=== PATIENT | male | born 2005 | race Caucasian/White ===

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

== ENCOUNTER 2025-02-13 23:10 | Emergency (ER) | payer OTHER, SELFPAY ==
[2025-02-13 23:14] VITALS: BP 134/66; PULSE 64; TEMP 36.9; O2SAT 97; BMI 35.4
--- OUTSIDE RECORDS SUMMARY | 2025-02-13 23:15 | XMS_ITS | Clinical Summary ---
Author Organization [facility] Address [address], [address] [place] [address] Care Team Providers Care Industrial Arts Teacher Name Role Phone Chandrika Hebert HOME AID - PRESIDENT Primary Care Provider + Allergies Active Allergy Reactions Criticality Noted Date Comments Codeine 10/05/2011 Penicillins 10/04/2021 Medications Lisdexamfetamine Dimesylate (VYVANSE) 40 MG CAPSIndications:At tention deficit hyperactivity disorder (ADHD), combined type Take 1 capsule by mouth Daily for 90 days. 90 capsule 2 Active amphetamine-dextro amphetamine (ADDERALL, 10MG,) 10 MG tabletIndications: Attention deficit hyperactivity disorder (ADHD), combined type Take 1 tablet by mouth 2 times daily as needed (attention focus) for up to 30 days. Max Daily Amount: 20 mg 60 tablet 4 Active Active Problems Patient Care Coordination No te Formatting of this note migh t be different from the original. Patient is transferring to [facility]. Problem Noted Date Diagnosed Date Seasonal allergies 10/05/2015 ADHD (attention deficit hyperactivity disorder) 07/28/2014 Immunizations Immunization Administration Dates Next Due COVID-19, Inactive, PFIZER P URPLE top, DILUTE for use, (age 12 y+) 01/14/2021 DTaP 10/20/2011, 7,06/11/2006,04/12,02/15/2006 HPV, GARDASIL 9, (age 9y-45y ), IM, 0.5mL 03/20/2019 Hepatitis B 06/11/2006,02/15/2006,2005 Hib, unspecified 03/26/2007,04/12/2006, 6 MMR, PRIORIX, M-M-R II, (age 12m+), SC, 0.5mL 10/20/2011,12/10/2006 Meningococcal ACWY, MENACTRA (MenACWY-D), (age 9m-55y), IM, 0.5mL 03/20/2019 Meningococcal ACWY, MENVEO (MenACWY-CRM), (age 2m-55y), IM, 0.5mL 12/03/2023 Pneumococcal Conjugate 7-christiano ent (Prevnar7) 03/26/2007,06/11/2006,04/12/2006,02/15 Poliovirus, IPOL, (age 6w+), SC/IM, 0.5mL 10/20/2011,06/11/2006,04/12/2006,02/15 TDaP, ADACEL (age 10y-64y), BOOSTRIX (age 10y+), IM, 0.5mL 03/27/2019 Varicella, VARIVAX, (age 12m +), SC, 0.5mL 10/20/2011,12/10/2006 Family History Medical History Relation Name Comments Cancer Paternal Aunt lymphoma Cancer Paternal Grandfather colon Relation Name Status Comments Father Alive Maternal Grandfather Alive Maternal Grandmother Alive Mother Alive Paternal Aunt Alive Paternal Grandfather Paternal Grandmother Alive Social History Tobacco Use Types Packs/Day Years Used Date Smoking Tobacco: Never Passive Smoke Exposure: Yes Smokeless Tobacco: Never Tobacco Cessation:Counseling Given: Not Answered Alcohol Use Standard Drinks/Week Comments No 0 (1 standard drink = 0.6 oz pur e alcohol) Overall Financial Resource Strain (CARDIA) Answe r Date Recorded How hard is it for you to pa y for the very basics like food, housing, medical care, and heating? Not hard at all 06/16/2021 PHQ-2 Answer Date Recorded PHQ-9 Total Score 0 12/03/2023 Hunger Vital Sign Answer Date Recorded Within the past 12 months, y ou worried that your food would run out before you got the money to buy more. Never true 06/16/19 22 Within the past 12 months, t he food you bought just didn't last and you didn't have money to get more. Never true 06/16/2021 Sex and Gender Information Value Date Recorded Sex Assigned at Not on file Legal Sex Male 10:24 PM EST Gender Identity Not on file Sexual Orientation Not on file Last Filed Vital Signs Vital Sign Reading Time Taken Comments Blood Pressure 116/64 12/03/2023 11:35 AM EDT Pulse 73 12/03/2023 11:35 AM EDT Temperature 36.7 C (98 F) 06/16/2021 4:16 PM EST Respiratory Rate 18 12/03/2023 11:35 AM EDT Oxygen Saturation 98% 12/03/2023 11:35 AM EDT Inhaled Oxygen Concentration - - Weight 119.7 kg (264 lb) 12/03/2023 11:35 AM EDT Height 171.7 cm (5' 7.6 ) 12/03/2023 11:35 AM ED T Body Mass Index 40.62 12/03/2023 11:35 AM EDT Body Mass Index Percentile 99.58% 12/03/2023 11: 35 AM EDT Growth Chart: CDC (Boys, 2-2 0 Years) Plan of Treatment Health Maintenance Due Date Last Done Comments HPV vaccine (2 - Male 2-dose series) 09/18/2019 03/20/2019 HIV screen 2020 Meningococcal B vaccine (1 of 2 - Standard) 2021 Hepatitis C screen 12/10/2023 Depression Screen 12/02/2024 12/03/2023 Flu vaccine (#1) 12/05/2024 COVID-19 Vaccine (3 - season) 2025 02/04/2021, 01/14/2021 DTaP/Tdap/Td vaccine (7 - Td or Tdap) 03/27/2029 03/27/2019, 10/20/2011, 03/26/2007, Additional history exists Hepatitis B vaccine Completed 06/11/2006, 02/15/2006, 2005 Hib vaccine Completed 03/26/2007, 11/2005, 02/15/2006 Pneumococcal 0-49 years Vaccine Aged Out 03/26/2007, 06/11/2006, 04/12/2006, Additional history exists No longer eligible based on patient's age to complete this topic Measles,Mumps,Rubella (MMR) vaccine Discontinued 10/20/2011, 12/10/2006 Polio vaccine Completed 10/20/2011, 09/2006, 04/12/2006, Additional history exists Varicella vaccine Completed 10/20/2011, 12/10/2006 Meningococcal (ACWY) vaccine Completed 12/03/2023, 03/20/2019 Hepatitis A vaccine Aged Out No longe r eligible based on patient's age to complete this topic Care Teams Industrial Arts Teacher Relationship Specialty Start Date End Date Chandrika Hebert, HOME AID - PRESIDENT PCP - General Nurse Practitioner 10/05/15
--- OUTSIDE RECORDS SUMMARY | 2025-02-13 23:15 | XMS_ITS | CCD ---
Author Organization [facility] Care Team Providers Care Advanced Developer Name Role Phone MISC, DOCTOR Unavailable Unavailable MISC, DOCTOR Unavailable Unavailable MISC, DOCTOR Unavailable Unavailable TITO MACIAS Referring Unavailable CHANDRIKA MONTOYA Primary Care Unavailable Chandrika Sheehan Primary Care Provider Allergies Allergy Classification Reported Allergen(s) Allergy Type Date of Onset Reaction(s) Facility (2 sources) Penicillins Propensity to adverse reactions to drug 10-04-2021 [facility] Medications Current Medications Medication Drug Class(es) Dates Sig (Normalized) Sig (Original) amphetamine aspartate 2.5 mg / amphetamine sulfate 2.5 mg / dextroamphetamine saccharate 2.5 mg / dextroamphetamine sulfate 2.5 mg oral tablet (2 sources) Central Nervous System Stimulant Start: 12-03-2023 take 1 tablet by mouth in the morning dextroamphetamine-am phetamine (ADDERALL) 10 mg tablet Take 1 tablet (10 mg total) by mouth in the morning. 12/03/2023 Active doxycycline monohydrate 100 mg oral capsule (1 source) Tetracycline-cl ass Drug Start: 02-26-2024 End: 03-07-2024 take 1 capsule by mouth in the morning, then take 1 capsule by mouth at bedtime doxycycline (MONODOX) 100 mg capsule Indications: Onychocryptosis , Left foot pain Take 1 capsule (100 mg total) by mouth in the morning and 1 capsule (100 mg total) before bedtime. Do all this for 10 days. 20 capsule 02/26/2024 03/07/2024 Active Problems Active Problems Problem Classification Problem Date Documented Da te Episodic/Chronic Other aftercare (6 sources) Other middle or intermediate school principal (current) drug therapy; Translations: [OTH DETENTION CURRENT DRUG THERAPY] Onset: 01-14-2017 Episodic Past or Other Problems Problem Classification Problem Date Documented Da te Episodic/Chronic Other connective tissue disease (1 source) Pain in left foot; Translations: [Pain in left foot] 02-26-2024 Episodic Other skin disorders (2 sources) Ingrowing nail; Translations: [Ingrowing nail] 02-26-2024 Episodic Results Test Name Value Interpretation Reference Range Dwayne meyer CBCon 07-17-2018 Erythrocyte distribution width Ratio (RBC) 12.7 % Normal 11.8-14.4 [facility] Comment on above: Performed By: #### C ELYSE, CP #### [address] [address] [employer] Practitioner: Brando Mendoza MD Hematocrit Volume Fraction (Bld) 44.4 % Normal 37.0-49.0 [facility] Comment on above: Performed By: #### C ELYSE, CP #### [address] [address] [employer] Practitioner: Brando Mendoza MD Hemoglobin mass conc (Bld) 14.4 g/dL Normal 13.0-15.0 [facility] Comment on above: Performed By: #### C ELYSE, CP #### [address] [address] [employer] Practitioner: Brando Mendoza MD MCH Entitic mass (RBC) 28.2 pg Normal 25.0-35.0 [facility] Comment on above: Performed By: #### C BC, CP #### [address] [address] [employer] Practitioner: Brando Mendoza MD MCHC mass conc (RBC) 32.4 g/dL Normal 28.4-34.8 [facility] Comment on above: Performed By: #### C BC, CP #### [address] [address] [employer] Practitioner: Brando Mendoza MD MCV Entitic volume (RBC) 86.9 fL Normal 78.0-102.0 [facility] Comment on above: Performed By: #### C BC, CP #### [address] [address] [employer] Practitioner: Brando Mendoza MD NRBC Automated 0.0 per 100 WBC Normal 0.0 [facility] Comment on above: Performed By: #### C BC, CP #### [address] [address] [employer] Practitioner: Brando Mendoza MD Platelet mean volume Entitic volume (Bld) 9.2 fL Normal 8.1-13.5 [facility] Comment on above: Performed By: #### C BC, CP #### [address] [address] [employer] Practitioner: Brando Mendoza MD Platelets #/vol (Bld) 379 10*3/uL Normal 138-453 [facility] Comment on above: Performed By: #### C BC, CP #### [address] [address] [employer] Practitioner: Brando Mendoza MD RBC #/vol (Bld) 5.11 10*6/uL Normal 4.50-5.30 [facility] Comment on above: Performed By: #### C BC, CP #### [address] [address] [employer] Practitioner: Brando Mendoza MD WBC #/vol (Bld) 4.4 10*3/uL Low 4.5-13.5 [facility] Comment on above: Performed By: #### C BC, CP #### [address] [address] [employer] Practitioner: Brando Mendoza MD Comp Metabolic Profon 2018 (cont.) Normal [facility] Comment on above: Result Comment: Aver age GFR for <20 years old not available. Chronic Kidney Disease: <60 mL/min/1.73sq m Kidney failure: <15 mL/min/1.73sq m eGFR calculated using average adult body mass. Additional eGFR calculator available at: http://www.[employer].TabUp/multiple_crcl_2012.htm Performed By: #### C ELYSE, CP #### [address] [address] [employer] Practitioner: Brando Mendoza MD Albumin mass conc 4.7 g/dL Normal 3.8-5.4 [facility] Comment on above: Performed By: #### C ELYSE, CP #### [address] [address] [employer] Practitioner: Brando Mendoza MD Albumin/Globulin mass ratio 1.7 {ratio} Normal 1.0-2.5 [facility] Comment on above: Performed By: #### C ELYSE, CP #### [address] [address] [employer] Practitioner: Brando Mendoza MD Alkaline Phos 241 U/L Normal 42-362 [facility] Comment on above: Performed By: #### C BC, CP #### [address] [address] [employer] Practitioner: Brando Mendoza MD ALT enzyme act/vol 17 U/L Normal 5-41 [facility] Comment on above: Performed By: #### C BC, CP #### [address] [address] [employer] Practitioner: Brando Mendoza MD Anion gap molar conc 15 mmol/L Normal 9-17 [facility] Comment on above: Performed By: #### C BC, CP #### [address] [address] [employer] Practitioner: Brando Mendoza MD AST enzyme act/vol 19 U/L Normal <40 [facility] Comment on above: Performed By: #### C BC, CP #### [address] [address] [employer] Practitioner: Brando Mendoza MD Bilirubin Ql (U) 0.27 mg/dL Low 0.3-1.2 [facility] Comment on above: Performed By: #### C BC, CP #### [address] [address] [employer] Practitioner: Brando Mendoza MD Calcium mass conc 9.7 mg/dL Normal 8.4-10.2 [facility] Comment on above: Performed By: #### C BC, CP #### [address] [address] [employer] Practitioner: Brando Mendoza MD Chloride molar conc 105 mmol/L Normal 98-107 [facility] Comment on above: Performed By: #### C BC, CP #### [address] [address] [employer] Practitioner: Brando Mendoza MD CO2 molar conc 21 mmol/L Normal 20-31 [facility] Comment on above: Performed By: #### C BC, CP #### [address] [address] [employer] Practitioner: Brando Mendoza MD Creatinine mass conc 0.42 mg/dL Low 0.53-0.79 [facility] Comment on above: Performed By: #### C BC, CP #### [address] [address] [employer] Practitioner: Brando Mendoza MD GFR,non Amer Pediatric GFR requires additional information. Refer to NKDEP website for Normal >60 [facility] Comment on above: Result Comment: calc ulator. Performed By: #### C BC, CP #### [address] [address] [employer] Practitioner: Brando Mendoza MD Glucose mass conc 102 mg/dL High 60-100 [facility] Comment on above: Performed By: #### C BC, CP #### [address] [address] [employer] Practitioner: Brando Mendoza MD Potassium molar conc 4.7 mmol/L Normal 3.6-4.9 [facility] Comment on above: Performed By: #### C BC, CP #### [address] [address] [employer] Practitioner: Brando Mendoza MD Protein mass conc 7.5 g/dL Normal 6.0-8.0 [facility] Comment on above: Performed By: #### C BC, CP #### [address] [address] [employer] Practitioner: Brando Mendoza MD Sodium molar conc 141 mmol/L Normal 135-144 [facility] Comment on above: Performed By: #### C BC, CP #### [address] [address] [employer] Practitioner: Brando Mendoza MD Urea nitrogen mass conc 13 mg/dL Normal 5-18 [facility] Comment on above: Performed By: #### C BC, CP #### [address] [address] [employer] Practitioner: Brando Mendoza MD BUN/CRE Ratio NOT REPORTED Normal 9-20 [facility] Comment on above: Performed By: #### C BC, CP #### [address] [address] [employer] Practitioner: Brando Mendoza MD GFR, Amer NOT REPORTED Normal >60 [facility] Comment on above: Performed By: #### C BC, CP #### [address] [address] [employer] Practitioner: Brando Mendoza MD Staging: NOT REPORTED Normal [facility] Comment on above: Performed By: #### C BC, #### [place] [place] [address] [employer] Practitioner: Brando Mendoza MD CBC AUTO DIFFon 01-14-2017 Basophils Auto #/vol (Bld) 0.0 103/ul Normal 0.0-0.1 [facility] Comment on above: Performed By: #### C BC ####[facility] [address] [place] [id number] Trish Basophils/100 WBC Auto (Bld) 0.5 % Normal 0.0-0.7 [facility] Comment on above: Performed By: #### C BC ####[facility] [address] [place] [id number] Trish Eosinophils 0.1 103/ul Normal 0.0-0.4 [facility] Comment on above: Performed By: #### C BC ####[facility] Al[address] [place] [id number] Trish Eosinophils/100 leukocytes 2.7 % Normal 0.0-4.0 [facility] Comment on above: Performed By: #### C BC ####[facility] Yrdclykqyl4536 [place] [id number] Trish Erythrocyte distribution width Auto Ratio (RBC) 12.4 % Normal 11.0-15.0 [facility] Comment on above: Performed By: #### C BC ####[facility] [address]ef[address] [place] [id number] Trish Erythrocytes (RBC) 4.78 106/ul Normal 3.93-5.29 [facility] Comment on above: Performed By: #### C BC ####[facility] Xs[address]24[address] [place], [place] [address]Vcncdd Trish Hematocrit (HCT) 39.7 % Normal 33.4-46.0 [facility] Comment on above: Performed By: #### C BC ####[facility] [address] Trish Hemoglobin mass conc (Bld) 13.6 g/dL Normal 10.8-15.5 [facility] Comment on above: Performed By: #### C BC ####[facility] [address] [place] [address] Trish IG # 0.00 10e3/ul Normal 0.00-0.03 [facility] Comment on above: Performed By: #### C BC ####[facility] [address] [place] [address] Trish IG % 0.0 % Normal 0.0-0.5 [facility] Comment on above: Performed By: #### C BC ####[facility] [address] [place] [address] Trish Lymphocytes 1.8 103/ul Normal 1.0-3.3 [facility] Comment on above: Performed By: #### C BC ####[facility] [address] [place] [address] Trish Lymphocytes/100 leukocytes 44.5 % Normal 16.4-52.7 [facility] Comment on above: Performed By: #### C BC ####[facility] K[address] [place] [address] Trish MANUAL DIFF REQ NO Normal [facility] Comment on above: Performed By: #### C BC ####[facility] [address] [place] [address] Trish MCH 28.5 pg Normal 24.8-30.2 [facility] Comment on above: Performed By: #### C BC ####[facility] [address] [place] [address] Trish MCHC mass conc (RBC) 34.3 g/dL Normal 30.5-36.0 [facility] Comment on above: Performed By: #### C BC ####[facility] [address] [place] [address] Trish MCV 83.1 fL Normal 76.7-90.6 [facility] Comment on above: Performed By: #### C BC ####[facility] Tjbaohjmng2934 [place], [place] [address]Bnpfoh Trish Monocytes 0.5 103/ul Normal 0.2-0.8 [facility] Comment on above: Performed By: #### C BC ####[facility] [address] [place] [address]Btdgvz Trish Monocytes/100 leukocytes 12.0 % Normal 4.1-12.3 [facility] Comment on above: Performed By: #### C BC ####[facility] [address] [place], [place] [address]Gerken Trish Neutrophils 1.7 103/ul Normal 1.5-7.5 [facility] Comment on above: Performed By: #### C BC ####[facility] F[address] [place], [place] [address]Gerken Trish Neutrophils/100 WBC Auto (Bld) 40.3 % Normal 32.5-74.7 [facility] Comment on above: Performed By: #### C BC ####[facility] [address]we[address] [place], [place] [address]Gerken Trish Platelet mean volume (PMV) 8.8 fL Critically low 9.5-13.5 [facility] Comment on above: Performed By: #### C BC ####[facility] Ry[address] [place], [place] [address]Gerken Trish Platelets 303 103/ul Normal 150-450 [facility] Comment on above: Performed By: #### C BC ####[facility] [address] [place], [place] [address]Gerken Trish WBC (Leukocytes) 4.1 103/ul Normal 3.8-9.8 [facility] Comment on above: Performed By: #### C BC ####[facility] [address] [place], [place] [address]Gerken Trish FREE T3on 01-14-2017 Triiodothyronine (T3) free 5.73 pg/mL Normal 2.73-5.86 [facility] Comment on above: Performed By: #### C MP, TSH, FT3 ####[facility] Z[address]9787 [place] [id number] Trish FREE T4on 01-14-2017 Thyroxine (T4) free 1.11 ng/dL Normal 0.78-2.19 [facility] Comment on above: Performed By: #### V ITAD, FT4 ####[facility] Otxegrcrxb3173 [address] Trish PROF 14(COMP METB)on 017 Alanine aminotransferase (ALT) 36 U/L Normal 21-72 [facility] Comment on above: Performed By: #### C MP, TSH, FT3 ####[facility] Jmnzklcifr9113 [address] Trish Albumin 4.5 g/dL Normal 3.5-5.0 [facility] Comment on above: Performed By: #### C MP, TSH, FT3 ####[facility] Jsvddprnmg3[address] Albumin/Globulin Ratio 1.5 {ratio} Normal T [facility] Comment on above: Performed By: #### C MP, TSH, FT3 ####[facility] Chzmvqxoyj9908 [address] Alkaline phosphatase (ALP) 203 U/L Normal 200-495 [facility] Comment on above: Performed By: #### C MP, TSH, FT3 ####[facility] Oqyxnsuroc0425 [address] Anion gap 13.3 mmol/L Normal [facility] Comment on above: Performed By: #### C MP, TSH, FT3 ####[facility] Ragvuxalxi4256 [address] Aspartate aminotransferase (AST) 26 U/L Normal 17-59 [facility] Comment on above: Performed By: #### C MP, TSH, FT3 ####[facility] Bxyllfklav6054 [address] Bilirubin Ql (U) 0.5 mg/dL Normal 0.2-1.3 [facility] Comment on above: Performed By: #### C MP, TSH, FT3 ####[facility] Yszkzqmkgf2132 [address] Trish BUN/Creatinine Ratio 25.6 mg/mg Normal [facility] Comment on above: Performed By: #### C MP, TSH, FT3 ####[facility] Enwnnapiyr7381 [address] Trish Calcium 9.8 mg/dL Normal 8.4-10.2 [facility] Comment on above: Performed By: #### C MP, TSH, FT3 ####[facility] Sqwkxjssag9769 [address] Trish Chloride 106 mmol/L Normal 98-107 [facility] Comment on above: Performed By: #### C MP, TSH, FT3 ####[facility] Nqrhohphnp5208 [address] Trish CO2 26.0 mmol/L Normal 22.0-30.0 [facility] Comment on above: Performed By: #### C MP, TSH, FT3 ####[facility] Jpfrdeazof9171 [address] Trish Creatinine 0.50 mg/dL Normal 0.40-1.00 [facility] Comment on above: Performed By: #### C MP, TSH, FT3 ####[facility] Tgudgzxlyp3654 [address] Trish Globulin 2.9 g/dL Normal [facility] Comment on above: Performed By: #### C MP, TSH, FT3 ####[facility] Xicbbfjaic0461 [address] Trish Glucose mass conc 93 mg/dL Normal 74-106 [facility] Comment on above: Performed By: #### C MP, TSH, FT3 ####[facility] Lykcteafxj1429 [address] Trish Potassium molar conc 4.5 mmol/L Normal 3.4-5.0 [facility] Comment on above: Performed By: #### C MP, TSH, FT3 ####[facility] Lftuhsrqlx7615 [address] Trish Protein 7.4 g/dL Normal 6.1-8.2 [facility] Comment on above: Performed By: #### C MP, TSH, FT3 ####[facility] Fvaeqgpgyd9902 [address] Trish Sodium 141 mmol/L Normal 137-145 [facility] Comment on above: Performed By: #### C MP, TSH, FT3 ####[facility] Konqovjjkp1427 [address] Trish Urea nitrogen 13.0 mg/dL Normal 6.4-19.3 [facility] Comment on above: Performed By: #### C MP, TSH, FT3 ####[facility] Xwrsyqxunc5247 [address] Trish TSHon 01-14-2017 Thyroid stimulating hormone (TSH) SEE BELOW Normal [facility] Comment on above: Result Comment: <0.3 4 UIU/ml HYPERTHYROID 0.34-5.60 UIU/ml EUTHYROID >5.60 UIU/ml HYPOTHYROID Performed By: #### C MP, TSH, FT3 ####[facility] [address] [place], [place] [address] Thyroid stimulating hormone (TSH) 1.740 uIU/mL Normal 0.580-5.600 [facility] Comment on above: Performed By: #### C MP, TSH, FT3 ####[facility] [address] [place] [address] Trish VITAMIN D 25 OHon 01-14-2017 VIT D 25-OH 49.5 ng/mL Normal [facility] Comment on above: Performed By: #### V ITAD, FT4 ####[facility] [address] [place] [address] Trish VIT D RANGES SEE BELOW Normal [facility] Comment on above: Result Comment: <20 ng/mL Vit D deficient 20 - <30 ng/mL Vit D insufficient 30 - 100 ng/mL Vit D sufficient >100 ng/mL Potential Toxicity Performed By: #### V ITAD, FT4 ####[facility] [address]vbwp[address]3670 [place], [place] [address]PkaqoiReinier Chambers VITDH PLEASE NOTE: NORMAL RANGE CHANGE 01-09-2013, TESTING PERFORMED AT [facility]. Normal [facility] Comment on above: Performed By: #### V WILLYAD, FT4 ####[facility] Jhrvmzitjg0898 [place], [place] [address]ChqcriReinier Chambers Vital Signs Date Time Vital Sign Value Performing Clinician Facility 03-10-2024 09:29-0500 Body height 172.7 cm Evelin Stroder [employer] Work Phone: [facility] 03-10-2024 09:29-0500 Body mass index (BMI) [Percentile] Per age and sex 99.47 % Evelin Stroder [employer] Work Phone: [facility] 03-10-2024 09:29-0500 Body mass index (BMI) [Ratio] 40.14 kg/m2 Evelin Stroder [employer] [facility] 03-10-2024 09:29-0500 Body temperature 96.8 [degF] Evelin Stroder [employer] Work Phone: [facility] 03-10-2024 09:29-0500 Body weight 119.75 kg Evelin Stroder [employer] Work Phone: [facility] 03-10-2024 09:29-0500 Diastolic blood pressure 82 mm[Hg] Evelin Stroder [employer] Work Phone: [facility] [employer] Comment on above: rushing to office 03-10-2024 09:29-0500 Systolic blood pressure 140 mm[Hg] Evelin Stroder [employer] Work Phone: [facility] Comment on above: rushing to office 02-26-2024 14:01-0400 Body height 172.7 cm Evelin Stroder [employer] Work Phone: [employer] 02-26-2024 14:01-0400 Body mass index (BMI) [Percentile] Per age and sex 99.47 % Evelin Kingder [employer] Work Phone: [facility] 02-26-2024 14:01-0400 Body mass index (BMI) [Ratio] 40.14 kg/m2 Evelin Stroder [employer] Work Phone: [facility] 02-26-2024 14:01-0400 Body temperature 97.2 [degF] Evelin Stroder [employer] Work Phone: [facility] 02-26-2024 14:01-0400 Body weight 119.75 kg Evelin Stroder [employer] Work Phone: [facility] 02-26-2024 14:01-0400 Diastolic blood pressure 78 mm[Hg] Evelin Stroder [employer] Work Phone: [facility] 02-26-2024 14:01-0400 Systolic blood pressure 122 mm[Hg] Evelin Stroder [employer] Work Phone: [facility] Encounters Encounter Date Encounter Type Care Provider Facility Start: 03-10-2024 End: 03-10-2024 Office outpatient visit 10 minutes Evelin Kingsimon [employer] Work Phone: [facility] Comment on above: Onychocryptosis (Mansi cheryl Dx) Start: 02-26-2024 End: 02-26-2024 Office outpatient new 30 minutes Evelin Stroder [employer] Work Phone: [facility] Comment on above: Onychocryptosis (Mansi cheryl Dx); Left foot pain Start: 07-17-2018 End: 07-18-2018 Patient encounter procedure TITO Rasmussen [facility] Start: 01-14-2017 End: 01-15-2017 Ambulatory [facility] Facility:H1 Procedures Date Procedure Procedure Detail Performing Clinician Start: 07-17-2018 Blood count complete automated TITO MACIAS Start: 07-17-2018 Comprehensive metabolic panel TITO MACIAS Plan of Treatment Date Care Activity Detail Author Start: 03-27-2029 DTaP,Tdap and Td Vaccines (7 - Td or Tdap) DTaP,Tdap and Td Vaccines (7 - Td or Tdap) [facility] Start: 02-25-2025 Adult BMI Screening Adult BMI Screen ing [facility] Start: 02-25-2025 Tobacco Screening Tobacco Screening [facility] Start: 03-10-2024 End: 03-10-2024 Patient encounter procedure 03/10/2024 9:20 AM EST Office Visit [facility] [address] [place] [address] Evelin Rivers, [employer] [address] [place] [address] [facility] Start: 01-06-2024 COVID-19 Vaccine ( season) COVID-19 Vaccine ( season) [facility] Start: 01-06-2024 COVID-19 Vaccine ( season) COVID-19 Vaccine ( season) [facility] Start: 01-06-2024 Influenza vaccination Influenza Vacc ine [facility] Start: 12-10-2023 Adult BMI Follow Up Plan Adult BMI Follow Up Plan [facility] Start: 09-18-2019 HPV Vaccines (2 - Ma le 2-dose series) HPV Vaccines (2 - Male 2-dose series) [facility] Start: 2017 Depression Screening Depression Scre ening [facility] Start: 2017 Tobacco Screening Tobacco Screening [facility] Start: 11-17-2011 MMR Vaccines (2 of 2 - Standard series) MMR Vaccines (2 of 2 - Standard series) [facility] Start: 2006 Hepatitis A Vaccines (1 of 2 - 2-dose series) Hepatitis A Vaccines (1 of 2 - 2-dose series) [facility] Immunizations Immunization Date Immunization Notes Care Provider Fa cility 11-14-2019 HPV, unspecified formulation [facility] Work Phone: [facility] 12-10-2006 measles, mumps and rubella virus vaccine Evelin CASE Work Phone: [facility] Payers Date Payer Category Payer Commercial Managed Care - HMO [id number] 1980 Unknown [id number] 1959 Unknown [id number] Social History Date Type Detail Facility Start: 10-04-2021 Tobacco smoking stat [facility] Never smoked tobacco [facility] Start: 10-04-2021 Tobacco use and exposure Smokeless tobacco non-user [facility] Start: 02-26-2024 End: 03-10-2024 Alcoholic beverage intake Lifetime non-drinker (finding) [facility] Start: 06-28-2022 End: 02-26-2024 History of Social function [facility] Start: 06-28-2022 End: 02-26-2024 Tobacco use panel [facility] Childcare Unknown [facility] Start: 2005 Sex assigned at Not on file P [facility] Start: 12-08-2014 Sex Male (finding) [facility] History of Present illness Narrative 03-10-2024 EVIE Simpson - 03/10/2024 9:20 AM EST Note Date & Type Note Facility 03-10-2024 History of Presen t illness Narrative Images from the original note were not included. [facility] [address] [address] Patient ID: Beau Manzano is a 18 y.o. male. PCP: CHANDRIKA L VILD, B[employer] MECH[employer]IC[employer] Subjective: Chief Complaint: Chief Complaint Patient presents with Follow-up Ingrown Toenail Slant back medial and lateral left hallux HPI: This 18 y.o. year old male presents today for follow-up of left hallux ingrown toenail. He has been doing the Epsom salt soaks applying Neosporin and Band-Aid. Taking prescribed. He states he has no pain. He has not seen any drainage. No other complaints Tobacco Use: Low Risk (03/10/2024) Patient History Smoking Tobacco Use: Never Smokeless Tobacco Use: Never Passive Exposure: Not on file Lab Review: No results found for: HGBA1C Past Medical History: No past medical history on file. Past Surgical History: No past surgical history on file. Family History: No family history on file. Social History: Social History Socioeconomic History Marital status: Single Spouse name: Not on file Number of children: Not on file Years of education: Not on file Highest education level: Not on file Occupational History Not on file Tobacco Use Smoking status: Never Smokeless tobacco: Never Substance and Sexual Activity Alcohol use: Never Drug use: Never Sexual activity: Not on file Other Topics Concern Not on file Social History Narrative Not on file Social Drivers of Health Financial Resource Strain: Low Risk (06/16/2021) Received from [facility] Overall Financial Resource Strain (CARDIA) Difficulty of Paying Living Expenses: Not hard at all Food Insecurity: No Food Insecurity (06/28/2022) Hunger Screening Food Insecurity - Worry: Never True Food Insecurity - Inability: Never True Transportation Needs: Not on file Physical Activity: Not on file Stress: Not on file Social Connections: Not on file Interpersonal Safety: Not on file Housing Instability: Not on file Allergies: Allergies Allergen Reactions Penicillins Current Medications: Current Outpatient Medications Medication Sig Dispense Refill dextroamphetamine-amphetamine (ADDERALL) 10 mg tablet Take 1 tablet (10 mg total) by mouth in the morning. No current facility-administered medications for this visit. Review of Systems: Face mask in place for CoVid compliance. Review of Systems Endocrine: Patient is not a Type 2 Diabetic Constitutional: Negative for chills and fever. Respiratory: Negative for shortness of breath and wheezing. Cardiovascular: Negative for leg swelling. Gastrointestinal: Negative for nausea and vomiting. Musculoskeletal: Negative for arthralgias and gait problem Neurological: Negative for dizziness and numbness. Objective: Vitals BP 140/82 Comment: rushing to office Temp 36 C (96.8 F) Ht 172.7 cm (5' 8 ) Wt 119.7 kg (264 lb) BMI 40.14 kg/m Vitals: 03/10/24 0929 BP: 140/82 Temp: 36 C (96.8 F) Lab Review: @[id number]@ No results found for: HGBA1C Physical Exam: Physical Exam Vascular: Dorsalis pedis pulses are present +2/4 leftand posterior tibial pulses present +2/4 left Capillary refill time is brisk. Skin temperature is warm to Warm from proximal to distal foot left. There is no edema present, left. Derm: Skin has normal hydration. Wounds Absent, left. There is no callus present left. No erythema or swelling noted to left hallux medial and lateral border Neuro: Epicritic and protective sensation Normal . Light touch intact. Patient Denies numbness and tingling. Ortho Exam: 5/5 strength all lower extremity muscle groups. Radiology Interpretations: Assessment and Plan: Beau was seen today for follow-up and ingrown toenail. Diagnoses and all orders for this visit: Onychocryptosis Patient examined and evaluated Examined left foot only No erythema or swelling noted to left hallux medial and lateral border No signs and symptoms of infection Informed to continue taking antibiotics as prescribed until gone Informed he can continue Epsom salt soaks. May do daily. Apply Neosporin and Band-Aid during the day. Leave open to air at night Follow-up as needed Answered all questions to patients satisfaction Call if any other questions This note was created with the assistance of a speech-recognition program. Although the intention is to generate a document that actually reflects the content of the visit, no guarantees can be provided that every mistake has been identified and corrected by editing. EVIE Simpson APRN-CNP 03/10/24 0950 documented in this encounter [facility] History of Present illness Narrative 02-26-2024 EVIE Simpson - 02/26/2024 2:00 PM EDT Note Date & Type Note Facility 02-26-2024 History of Present illness Narrative Images from the original note were not included. [facility] [address] [facility] [address] Patient ID: Beau Manzano is a 18 y.o. male. PCP: CHANDRIKA MONTOYA, B[employer] MECH[employer]IC[employer] Subjective: Chief Complaint: Chief Complaint Patient presents with New Patient Ingrown Toenail Left ingrown lateral and medial HPI: This 18 y.o. year old male presents today with complaints of ingrown toenail to left hallux medial and lateral border. He is accompanied with his mother States the area was painful a couple weeks ago. And he put out his ingrown. He did notice drainage proximally one-week ago. He has not tried any [id number] treatment. No other complaints Tobacco Use: Low Risk (02/26/2024) Patient History Smoking Tobacco Use: Never Smokeless Tobacco Use: Never Passive Exposure: Not on file Recent Concern: Tobacco Use - Medium Risk (12/06/2023) Received from [facility] Patient History Smoking Tobacco Use: Never Smokeless Tobacco Use: Never Passive Exposure: Yes Lab Review: No results found for: HGBA1C Past Medical History: History reviewed. No pertinent past medical history. Past Surgical History: History reviewed. No pertinent surgical history. Family History: History reviewed. No pertinent family history. Social History: Social History Socioeconomic History Marital status: Single Spouse name: Not on file Number of children: Not on file Years of education: Not on file Highest education level: Not on file Occupational History Not on file Tobacco Use Smoking status: Never Smokeless tobacco: Never Substance and Sexual Activity Alcohol use: Never Drug use: Never Sexual activity: Not on file Other Topics Concern Not on file Social History Narrative Not on file Social Drivers of Health Financial Resource Strain: Low Risk (06/16/2021) Received from [facility] Overall Financial Resource Strain (CARDIA) Difficulty of Paying Living Expenses: Not hard at all Food Insecurity: No Food Insecurity (06/28/2022) Hunger Screening Food Insecurity - Worry: Never True Food Insecurity - Inability: Never True Transportation Needs: Not on file Physical Activity: Not on file Stress: Not on file Social Connections: Not on file Interpersonal Safety: Not on file Housing Instability: Not on file Allergies: Allergies Allergen Reactions Penicillins Current Medications: Current Outpatient Medications Medication Sig Dispense Refill dextroamphetamine-amphetamine (ADDERALL) 10 mg tablet Take 1 tablet (10 mg total) by mouth in the morning. Max Daily Amount: 10 mg. doxycycline (MONODOX) 100 mg capsule Take 1 capsule (100 mg total) by mouth in the morning and 1 capsule (100 mg total) before bedtime. Do all this for 10 days. 20 capsule 0 No current facility-administered medications for this visit. Review of Systems: Face mask in place for CoVid compliance. Review of Systems Endocrine: Patient is not a Type 2 Diabetic Constitutional: Negative for chills and fever. Respiratory: Negative for shortness of breath and wheezing. Cardiovascular: Negative for leg swelling. Gastrointestinal: Negative for nausea and vomiting. Musculoskeletal: Negative for arthralgias and gait problem Neurological: Negative for dizziness and numbness. Objective: Vitals BP 122/78 Temp 36.2 C (97.2 F) Ht 172.7 cm (5' 8 ) Wt 119.7 kg (264 lb) BMI 40.14 kg/m Vitals: 02/26/24 1401 BP: 122/78 Temp: 36.2 C (97.2 F) Lab Review: @[id number]@ No results found for: HGBA1C Physical Exam: Physical Exam Vascular: Dorsalis pedis pulses are present +2/4 left and posterior tibial pulses present +2/4 left. Capillary refill time is brisk. Skin temperature is warm to Warm from proximal to distal foot left. There is no edema present, left. Derm: Skin has normal hydration. Wounds Absent, left. There is no callus present left. Onychocryptosis to left hallux medial and lateral border. Erythema and swelling noted to left hallux lateral border Neuro: Epicritic and protective sensation Normal . Light touch intact. Patient Denies numbness and tingling. Ortho Exam: 5/5 strength all lower extremity muscle groups. Radiology Interpretations: Assessment and Plan: Beau was seen today for new patient and ingrown toenail. Diagnoses and all orders for this visit: Onychocryptosis - doxycycline (MONODOX) 100 mg capsule; Take 1 capsule (100 mg total) by mouth in the morning and 1 capsule (100 mg total) before bedtime. Do all this for 10 days. Left foot pain - doxycycline (MONODOX) 100 mg capsule; Take 1 capsule (100 mg total) by mouth in the morning and 1 capsule (100 mg total) before bedtime. Do all this for 10 days. Patient examined and evaluated Onychocryptosis to left hallux medial and lateral border. Erythema and swelling noted to left hallux lateral border Patient has toe infection Will place on doxycycline 100 mg twice a day for 10 days The mono dogs was on the patient's insurance plan formula every. Will give doxycycline monodox Slant back procedure done to left hallux medial and lateral border. Capillary bleeding seen. Neosporin and Band-Aid applied Informed to do Epsom salt soaks twice a day apply Neosporin and Band-Aid until next visit I did discuss a matricectomy since he has a history of ingrown toenails. I did inform them he will have to be infection free for 4 months prior to doing a matricectomy Follow-up in 2 weeks Answered all questions to patients satisfaction Call if any other questions This note was created with the assistance of a speech-recognition program. Although the intention is to generate a document that actually reflects the content of the visit, no guarantees can be provided that every mistake has been identified and corrected by editing. EVIE Simpson APRN-CNP 02/26/24 1427 documented in this encounter [facility] Evaluation note Note Date & Type Note Facility Evaluation note Diagnosis Onychocryptosis- Primary Ingrowing nail Left foot pain Pain in soft tissues of limb documented in this encounter [facility] Evaluation note Note Date & Type Note Facility Evaluation note Diagnosis Onychocryptosis- Primary Ingrowing nail documented in this encounter [facility] Instructions Note Date & Type Note Facility Instructions Not on filedocumented in this en counter [facility] Instructions Note Date & Type Note Facility Instructions Not on filedocumented in this en counter [facility] Summary Purpose Family History No Family History Records FoundNo Family History Records Found Advance Directives No Advanced Directives Records FoundNo Advanced Directives Records Found Additional Source Comments (unrecognized sect ion and content) No Status Records FoundNo Status Records Found INFORMATION SOURCE (unrecogn ized section and content) DATE CREATED AUTHOR 10/31/2017 [facility] DATE CREATED AUTHOR AUTHOR'S GENE GUAN 07/18/2018 [facility] Reason for Visit (unrecogniz ed section and content) Reason Comments New Patient Ingrown Toenail Left ingrown lateral and medial Reason Comments Follow-up Ingrown Toenail Slant back medial an d lateral left hallux Care Teams (unrecognized sec tion and content) Advanced Developer Relationship Specialty Start Date End Date Chandrika Montoya APRN-CH[employer]ER [address] [place] [address] [address] [place] [address] PCP - General Nurse Practitioner 06/28/22 Advanced Developer Relationship Specialty Start Date End Date Chandrika Montoya APRN-[employer] [address] [place] [address] [address] [place] [address] PCP - General Nurse Practitioner 06/28/22 FOR RECORDS PERTAINING TO PATIENTS WHO ARE OR HAVE BEEN ENROLLED IN A CHEMICAL DEPENDENCY/SUBSTANCEABUSE PROGRAM, SOME INFORMATION MAY BE OMITTED. This clinical summary was aggregated from multiple sources. Caution should be exercised in using it in the provision of clinical care. This summary normalizes information from multiple sources, and as a consequence, information in this document may materially change the coding, format and clinical context of patient data. In addition, data may be omitted in some cases. CLINICAL DECISIONS SHOULD BE BASED ON THE PRIMARY CLINICAL RECORDS. [facility] [employer] provides no warranty or guarantee of the accuracy or completeness of information in this document.
--- NOTE | 2025-02-13 23:18 | PC.NURSE ---
Laceration to bridge of nose, no bleeding at this time.
--- NOTE | 2025-02-14 05:13 | ED_ITS ---
HPI HPI - General Adult General Chief complaint: Wound/Laceration Stated complaint: laceration on nose Time Seen by Provider: 02/13/25 23:21 Source: patient Mode of arrival: walk-in History of Present Illness HPI narrative: Patient is a healthy 19-year-old male presenting to the emergency department for evaluation of facial injury. Patient tripped and fell getting out of bed earlier today. He landed on his nose. His mother request that he came to the emergency department to get checked out. Patient had a nosebleed at that time, but this has since resolved. He takes no medications. He has no trouble merced athing. He did not hit his head or lose consciousness. No trauma to the teeth, his bite feels aligned. He has no chest pain or shortness of breath. No trouble breathing. Related Data Previous Rx's ?Medication ?Instructions ?Recorded azithromycin 250 mg tablet See Rx Instructions PO .COM PLEX #6 07/07/24 (Zithromax Z-Alvaro) tabs ibuprofen 600 mg tablet 600 mg PO Q8H PRN pain #20 t abs 07/07/24 Allergies Allergy/AdvReac Type Severity Reaction Status Date / Time Penicillins Allergy Mild Rash Verified 07/06/24 23:50 Sulfa (Sulfonamide Allergy Mild rash Verified 07/06/24 23:50 Antibiotics) Review of Systems ROS Status of ROS 10 or more systems reviewed and unremark able except as noted in history and below PFSH PFSH Social History Little interest or pleasure in doing things: not at all Feeling down, depressed, or hopeless: not at all Exam Narrative Exam Narrative: CONSTITUTIONAL: Well-appearing, answering questions and following commands appropriately SKIN: Was warm and dry. EYES: Sclerae white. EARS, NOSE, THROAT: There is a superficial, nonbleeding abrasion over the bridge of his nose. No tenderness over the bridge of the nose. No septal hematoma. Nasal septum is midline. No chipped or loose/missing teeth. No trismus, no malocclusion of his bite. RESPIRATORY: Clear to auscultation bilaterally, no wheezes, crackles, or stridor, no use of accessory muscles CARDIOVASCULAR: Normal rate and regular rhythm. There is no S3, S4, murmur, rub. GASTROINTESTINAL: Abdomen is soft, nontender, nondistended. MUSCULOSKELETAL: No peripheral edema. No deformities. NEUROLOGIC: Patient is awake and alert. Facies were symmetrical. Constitutional Vital Signs, click to edit/add: Last Vital Signs Temp 98.4 F 02/13/25 23:14 Pulse 64 02/13/25 23:14 Resp 20 02/13/25 23:14 BP 134/66 02/13/25 23:14 Pulse Ox 97 02/13/25 23:14 O2 Del Method Room Air 02/13/25 23:14 Course Vital Signs Vital signs: Vital Signs Temperature 98.4 F 02/13/25 23:14 Pulse Rate 64 02/13/25 23:14 Respiratory Rate 20 02/13/25 23:14 Blood Pressure 134/66 02/13/25 23:14 Pulse Oximetry 97 02/13/25 23:14 Oxygen Delivery Method Room Air 02/13/25 23:14 Temperature 98.4 F 02/13/25 23:14 Pulse Rate 64 02/13/25 23:14 Respiratory Rate 20 02/13/25 23:14 Blood Pressure 134/66 02/13/25 23:14 Pulse Oximetry 97 02/13/25 23:14 Oxygen Delivery Method Room Air 02/13/25 23:14 Medical Decision Making MDM Narrative Medical decision making narrative: Patient is a 19-year-old male presenting to the emergency department evaluation of an nasal injury after trip and fall earlier tonight. His vital signs are within normal limits. He is afebrile and hemodynamically stable. Examination as noted above. Patient's history and physical examination is consistent with a mild nose injury with a superficial abrasion that does not require repair. No septal hematoma. No tenderness over the bridge of the nose to suggest fracture. He has no other injuries and sustained no head trauma. I do believe the patient is stable for discharge. They were instructed to follow up with their PCP for further care. Return precautions were given including any new or worsening symptoms. Patient understands and agrees to the plan. FINAL IMPRESSION: #Acute contusion and abrasion of the nose DISPOSITION: Discharged home CONDITION: Good Discharge Plan Discharge Chief Complaint: Wound/Laceration Clinical Impression: Abrasion Patient Disposition: Home, Self-Care Time of Disposition Decision: 23:34 Condition: Good Mode of Transportation: Private Vehicle Prescriptions / Home Meds: No Action azithromycin [Zithromax Z-Alvaro] 250 mg tablet See Rx Instructions .ROUTE .COMPLEX Qty: 6 0RF Rx Instructions: For 250 mg dose pack: take 500 mg today (day 1), then 250 mg for 4 days (days 2-5) ibuprofen 600 mg tablet 600 mg PO Q8H PRN (Reason: pain) Qty: 20 0RF Print Language: Setswana Instructions: Bone Bruise (ED) Referrals: Physician,Non-Staff, MD [Primary Care Provider] - 1 week Discharge Date/Time: 02/13/25 23:43
== END 2025-02-13 23:43 | disposition home or self-care (01) ==
PROVIDERS: Emergency Provider Student in an Organized Health Care Education/Training Program
DX: S00.31XA Abrasion of nose, initial encounter (principal); W06.XXXA Fall from bed, initial encounter
CPT/HCPCS: 99282